=== PATIENT | male | born 1970 | race Caucasian/White ===

== ENCOUNTER 2024-01-03 10:26 | Outpatient (OUT) | payer OTHER, SELFPAY ==
[2024-01-03 10:53] LABS: Basophils Absolute Auto 0.1 10^3/uL (0.0-0.1); Basophils Percent Auto 0.9 % (0.2-2.0); Eosinophils Absolute Auto 0.1 10^3/uL (0.0-0.7); Hematocrit 44.9 % (42.0-54.0); Hemoglobin 15.6 g/dL (14.0-18.0); Immature Granulocytes Abs Auto 0.01 10^3/uL (0.00-0.03); Immature Granulocytes Pct Auto 0.2 % (0.0-0.5); Lymphocytes Absolute Auto 1.5 10^3/uL (1.2-3.8); Lymphocytes Percent Auto 26.2 % (20.5-60.0); Mean Corpuscular HGB Conc 34.7 g/dL (29.9-35.2); Mean Corpuscular Hemoglobin 30.5 pg (25.9-34.0); Mean Corpuscular Volume 87.9 fL (80.0-94.0); Mean Platelet Volume 10.2 fL (9.5-13.5); Monocytes Absolute Auto 0.4 10^3/uL (0.3-0.8); Neutrophils Absolute Auto 3.6 10^3/uL (1.4-6.5); Neutrophils Percent Auto 63.7 % (43.0-75.0); Platelet Count 171 10^3/uL (150-450); Red Blood Count 5.11 10^6/uL (4.70-6.10); Red Cell Distribution Width 12.2 % (11.0-15.0); White Blood Count 5.6 10^3/uL (4.0-11.0)
[2024-01-03 11:11] LABS: Microalbumin Urine Random 1.6 mg/dL (<=30.0)
[2024-01-03 11:22] LABS: Estimated Average Glucose 128 mg/dL; Glycohemoglobin A1C 6.1 % (4.5-6.2)
[2024-01-03 12:40] LABS: Alanine Aminotransferase 28 U/L (16-63); Albumin Globulin Ratio 1.1; Albumin Level 3.7 g/dL (3.4-5.0); Alkaline Phosphatase 119 U/L (46-116); Anion Gap 11.4; Aspartate Amino Transferase 17 U/L (15-37); BUN Creatinine Ratio 18.2; Calcium 8.7 mg/dL (8.5-10.1); Carbon Dioxide 30.3 mmol/L (21.0-32.0); Chloride 104 mmol/L (98-107); Chol HDL Ratio 5.8; Cholesterol 180 mg/dL (<=200); Estimated GFR (African America >60 (>=60); Estimated GFR (Non-African Ame >60 (>=60); Globulin 3.3 g/dL; Glucose 114 mg/dL (74-106); HDL Cholesterol 31 mg/dL (40-60); Potassium 3.7 mmol/L (3.5-5.1); Prostate Specific Antigen Scrn 0.63 ng/mL (<=4.00); Sodium 142 mmol/L (136-145); Thyroid Stimulating Hormone 1.404 uIU/mL (0.358-3.740); Triglycerides 81 mg/dL (<=150); VLDL CHOLESTEROL 16.2 mg/dL
== END 2024-01-03 10:27 | disposition home or self-care (01) ==
PROVIDERS: PCP Family Medicine; Visit Provider Family Medicine
DX: Z00.00 Encounter for general adult medical examination without abnormal findings (principal); I10 Essential (primary) hypertension; E11.65 Type 2 diabetes mellitus with hyperglycemia; Z12.5 Encounter for screening for malignant neoplasm of prostate
CPT/HCPCS: 36415; 80053; 80061; 82043; 83036; 84443; 85025; G0103